=== PATIENT | male | born 1955 | race Caucasian/White ===

== ENCOUNTER 2018-06-29 10:52 | Emergency (ER) | payer MEDICARE ==
[~2018-06-29] VITALS: Ht 182.9 cm; Wt 74.8 kg
[2018-06-29] MEDS ORDERED: ONDANSETRON 4 MG/2 ML VIAL IV ONE ×2 (11:45→13:45)
[2018-06-29] MEDS ORDERED: IV NORMAL SALINE 1000 ML BAG IV ONE (11:45)
[2018-06-29] MEDS ORDERED: PANTOPRAZOLE SODIUM 40 MG VIAL IV ONE (11:45)
[2018-06-29] MEDS ORDERED: PANTOPRAZOLE SODIUM 40 MG VIAL ONE (12:00)
[2018-06-29] MEDS ORDERED: ONDANSETRON 4 MG/2 ML VIAL ONE ×2 (12:00→13:45)
[2018-06-29 12:05] LABS: BASOPHILS # (AUTO) 0.1 K/uL (0.0-8.0); BASOPHILS % (AUTO) 0.5 % (0.0-2.0); EOSINOPHILS # (AUTO) 0.3 K/uL (0.0-0.7); HEMATOCRIT 44.8 % (36.7-47.1); HEMOGLOBIN 15.1 g/dL (12.5-16.3); LYMPHOCYTES # (AUTO) 0.6 K/uL (20.0-40.0); LYMPHOCYTES % (AUTO) 5.1 % (20.5-51.5); MEAN CORPUSCULAR HEMOGLOBIN 29.3 uug (23.8-33.4); MEAN CORPUSCULAR HGB CONC 34 g/dL (32.5-36.3); MEAN CORPUSCULAR VOLUME 87.1 fL (73.0-96.2); MONOCYTES # (AUTO) 0.9 K/uL (2.0-10.0); MONOCYTES % (AUTO) 7.2 % (0.0-11.0); NEUTROPHILS # (AUTO) 10.8 K/uL (1.8-8.9); NEUTROPHILS % (AUTO) 85.2 % (38.5-71.5); PLATELET COUNT (AUTO) 237 K/uL (152-348); RED BLOOD CELL COUNT(AUTO) 5.14 MIL/uL (4.06-5.63); WHITE BLOOD COUNT (AUTO) 12.7 K/uL (3.6-10.2)
[2018-06-29 12:22] LABS: CREATININE 0.8 mg/dL (0.6-1.3); POTASSIUM 4.4 mmol/L (3.5-5.1)
[2018-06-29 12:27] LABS: BILIRUBIN,DIRECT 0.1 mg/dL (0.0-0.2); BILIRUBIN,TOTAL 0.7 mg/dL (0.2-1.0); TOTAL PROTEIN, SERUM 7.8 g/dL (6.4-8.2)
--- NOTE | 2018-06-29 13:00 | NUR ---
Patient is resting comfortably in bed with eyes closed
--- NOTE | 2018-06-29 14:00 | NUR ---
PATIENT WITH NO C/O N/V. A & O X4.
[2018-06-29 14:58] LABS: *BILIRUBIN,URIN NEGATIVE (NEGATIVE); *BLOOD, URINE NEGATIVE (NEGATIVE); *CLARITY,URINE CLEAR (CLEAR); *COLOR,URINE YELLOW (YELLOW); *KETONES,URINE NEGATIVE (NEGATIVE); *PROTEIN,URINE NEGATIVE (NEGATIVE); *UROBILINOGEN,URINE 0.2 E.U./dl (NORMAL); LEUKOCYTE ESTERASE ,URINE NEGATIVE (NEGATIVE); NITRITE, URINE NEGATIVE (NEGATIVE); UGLUCOSE NEGATIVE (NEGATIVE)
[2018-06-29 15:11] LABS: MUCUS,URINE MODERATE /LPF (0-FEW); WBC,URINE 0-3 /HPF (0-3)
[2018-06-29] MEDS ORDERED: CLOPIDOGREL 75 MG TABLET PO ONE (16:45)
--- NOTE | 2018-06-29 16:47 | NUR ---
PATIENT AMBULATED TO BATHROOM.
[2018-06-29] MEDS ORDERED: CLOPIDOGREL 75 MG TABLET ONE (17:03)
--- NOTE | 2018-06-29 17:16 | NUR ---
DR JOSUE SPOKE WITH DR GIL.
--- NOTE | 2018-06-29 18:21 | NUR ---
Patient discharged to home in stable conditon. Written and verbal after care instructions given. Patient verbalizes understanding of instructions. NO C/O CP. NO SOB. NO N/V.
[2018-06-29 18:26] VITALS: BP 115/74
== END 2018-06-29 18:40 | disposition home or self-care (01) ==
LOC: ER 10:52
DX: A08.4 Viral intestinal infection, unspecified (principal); R07.9 Chest pain, unspecified; Z87.891 Personal history of nicotine dependence
CPT/HCPCS: 36415; 71045; 80048; 80076; 81001; 83690; 84484 ×2; 85025; 85730; 93005 ×2; 96361; 96374; 96375; 96376; 99284; C9113; J2405 ×2; 70030-TC; A4663; J7030